=== PATIENT | female | born 1960 | race American Indian/Alaskan Native ===

== ENCOUNTER 2018-03-12 00:37 | Emergency (ER) | payer BC, MEDICAID ==
[2018-03-12 00:38] VITALS: BMI 41.3
[2018-03-12 01:43] VITALS: PULSE 91; RESP 16; TEMP 97.7; O2SAT 97
== END 2018-03-12 02:33 | disposition left against medical advice (07) ==
LOC: H.ER 00:37
DX: Z02.89 Encounter for other administrative examinations (principal)